=== PATIENT | male | born 1950 | race Caucasian/White ===

== ENCOUNTER 2019-11-27 12:03 | Inpatient (IN) ==
[2019-11-27] MEDS ORDERED: 0.9 % Sodium Chloride 1,000 ML IVC SCH ×2 (14:15→14:45)
[2019-11-27] MEDS ORDERED: Naloxone 0.4 MG/ML INJ IVP PRN ×2 (14:36→19:07)
[2019-11-27] MEDS ORDERED: Ondansetron 4 MG/2 ML VIAL IVP PRN ×2 (14:36→19:07)
[2019-11-27] MEDS ORDERED: *HR* HYDROmorphone (PF) 1 MG/ML SYRINGE IVP PRN ×2 (14:38→19:07)
[2019-11-27] MEDS ORDERED: *HR* LORazepam 2 MG/ML VIAL IVP PRN ×6 (14:42→19:07)
[2019-11-27] MEDS: Piperacillin/Tazobactam 3.375 GM in 0.9 % Sodium Chloride Mini Bag 100 ML IVPB SCH ×2 (15:05→23:16)
[2019-11-27] MEDS ORDERED: *HR* Midazolam HCl 2 MG/2 ML VIAL ONE (15:17)
[2019-11-27] MEDS ORDERED: *HR* Propofol 200 MG/20 ML VIAL IVP ONE (15:17)
[2019-11-27] MEDS ORDERED: Lidocaine -MPF 2% 2 ML VIAL ONE ×2 (15:17→15:51)
[2019-11-27] MEDS ORDERED: *HR* FentaNYL (PF) 100 MCG/2 ML VIAL ONE (15:17)
[2019-11-27] MEDS ORDERED: Ondansetron 4 MG/2 ML VIAL ONE (15:18)
[2019-11-27] MEDS ORDERED: Dexamethasone 4 MG/ML VIAL ONE (15:18)
[2019-11-27] MEDS ORDERED: *HR* Rocuronium Bromide 50 MG/5 ML VIAL ONE (15:18)
[2019-11-27] MEDS ORDERED: *HR* Succinylcholine 200 MG/10 ML VIAL IVP ONE (15:21)
[2019-11-27] MEDS ORDERED: Famotidine 20 MG/2 ML VIAL ONE (15:44)
[2019-11-27] MEDS ORDERED: *HR* PHENYLEPHRINE 1,000 MCG/10 ML SYRINGE IVP ONE (16:21)
[2019-11-27] MEDS ORDERED: *HR* HYDROMORPHONE 2 MG/ML VIAL ONE (17:23)
[2019-11-27] MEDS ORDERED: Thiamine (B-1) 100 MG, Folic Acid 1 MG, MVI, adult with vitamin K 10 ML in 0.9 % Sodi... IVPB SCH (18:00)
[2019-11-27] MEDS ORDERED: Pantoprazole 40 MG VIAL IVP SCH (18:00)
[2019-11-27] MEDS ORDERED: *HR* HYDROmorphone PF 0.5 MG/0.5 ML SYRINGE IVP PRN (18:06)
[2019-11-27] MEDS ORDERED: Ondansetron 4 MG/2 ML VIAL IVP ONE (18:06)
[2019-11-27] MEDS ORDERED: *HR* Promethazine 25 MG/ML VIAL IVP PRN (18:06)
[2019-11-27] MEDS: 0.9 % Sodium Chloride 1,000 ML IVC SCH (20:36)
[2019-11-27] MEDS: Acetaminophen IV 1,000 MG/100 ML INFUS..BTL IVPB SCH (22:47)
[2019-11-28 01:01] LABS: Basophils % 0.1 %; Hematocrit 33.4 % (37.5-50.1); Lymphocytes % 1.3 %; Segmented Neutrophils % 96.3 %
[2019-11-28 01:02] LABS: Hemoglobin 10.8 g/dL (12.9-16.9); Immature Granulocytes % 0.6 % (0-4); Lymphocytes # 0.4 K/mcL (0.6-4.6); Mean Corpuscular HGB Conc 32.3 g/dL (31.6-35.5); Mean Corpuscular Volume 89.5 fL (83.0-100.0); Mean Platelet Volume 11.3 fL (9.4-12.4); Monocytes # 0.5 K/mcL (0.0-1.3); Monocytes % 1.7 %; Neutrophils # 26.2 K/mcL (1.6-8.9); Platelet Count 271 K/mcL (140-400); Red Blood Count 3.73 M/mcL (4.19-5.50); Red Cell Distribution Width 14.1 % (11.5-14.5); White Blood Count 27.2 K/mcL (4.3-11.1)
[2019-11-28 01:26] LABS: Albumin/Globulin Ratio 1.2 (1.1-2.2); Bilirubin,Direct 1.9 mg/dL (0.0-0.2); Bilirubin,Indirect 0.2 mg/dL (0.0-1.0); Bilirubin,Total 2.1 mg/dL (0.3-1.0); Globulin 2.5 g/dL (2.4-3.5); Total Protein 5.5 g/dL (6.4-8.9)
[2019-11-28 01:30] LABS: BUN/Creatinine Ratio 11 (6-26); Blood Urea Nitrogen 9 mg/dL (8-23); Calcium 7.9 mg/dL (8.6-10.3); Carbon Dioxide 20 mEq/L (23-29); Chloride 106 mEq/L (98-107); Glucose 105 mg/dL (70-105); Osmolality,Calculated 279 (280-300); Potassium 4.6 mEq/L (3.5-5.1); Sodium 135 mEq/L (136-145); eGFR For African Americans > 60 (> 60); eGFR For Non-African Americans > 60 (> 60)
[2019-11-28 01:44] LABS: Platelet Estimate Normal (Normal)
[2019-11-28] MEDS: 0.9 % Sodium Chloride 1,000 ML IVC SCH ×2 (01:59→10:18)
[2019-11-28] MEDS: Pantoprazole 40 MG VIAL IVP SCH ×2 (05:15→18:34)
[2019-11-28] MEDS: *HR* Heparin 5,000 UNIT/ML VIAL SQ SCH ×2 (05:15→18:33)
[2019-11-28] MEDS: Acetaminophen IV 1,000 MG/100 ML INFUS..BTL IVPB SCH ×3 (05:15→19:51)
[2019-11-28] MEDS: *HR* HYDROmorphone (PF) 1 MG/ML SYRINGE IVP PRN ×3 (08:35→23:07)
[2019-11-28] MEDS: Piperacillin/Tazobactam 3.375 GM in 0.9 % Sodium Chloride Mini Bag 100 ML IVPB SCH ×3 (08:35→22:58)
[2019-11-28] MEDS: Fluconazole 400 MG/200 ML 400 MG/200 ML BAG IVPB SCH (08:36)
[2019-11-28] MEDS: Thiamine (B-1) 100 MG, Folic Acid 1 MG, MVI, adult with vitamin K 10 ML in 0.9 % Sodi... IVPB SCH (18:34)
[2019-11-29] MEDS: Piperacillin/Tazobactam 3.375 GM in 0.9 % Sodium Chloride Mini Bag 100 ML IVPB SCH ×3 (00:14→17:57)
[2019-11-29] MEDS: Acetaminophen IV 1,000 MG/100 ML INFUS..BTL IVPB SCH ×4 (00:15→17:59)
[2019-11-29] MEDS: 0.9 % Sodium Chloride 1,000 ML IVC SCH ×2 (05:14→05:16)
[2019-11-29 05:38] LABS: Alanine Aminotransferase 104 Units/L (7-52); Albumin 2.8 g/dL (3.5-5.7); Albumin/Globulin Ratio 1.1 (1.1-2.2); Alkaline Phosphatase 120 Units/L (34-104); Aspartate Amino Transferase 104 Units/L (13-39); Bilirubin,Direct 1.5 mg/dL (0.0-0.2); Bilirubin,Indirect 0.3 mg/dL (0.0-1.0); Bilirubin,Total 1.8 mg/dL (0.3-1.0); Globulin 2.6 g/dL (2.4-3.5); Total Protein 5.4 g/dL (6.4-8.9)
[2019-11-29] MEDS ORDERED: *HR* Dextrose 50 % in Water (Vial) 50 ML VIAL ONE (06:00)
[2019-11-29] MEDS ORDERED: *HR* Dextrose 50 % in Water (Vial) 50 ML VIAL IVP ONE (06:00)
[2019-11-29] MEDS ORDERED: *HR* Dextrose 50 % in Water (Vial) 50 ML VIAL IVP PRN (06:08)
[2019-11-29] MEDS: *HR* Heparin 5,000 UNIT/ML VIAL SQ SCH ×2 (06:10→17:58)
[2019-11-29] MEDS: Pantoprazole 40 MG VIAL IVP SCH ×2 (06:11→17:59)
[2019-11-29] MEDS: Fluconazole 400 MG/200 ML 400 MG/200 ML BAG IVPB SCH (08:58)
[2019-11-29] MEDS: *HR* HYDROmorphone (PF) 1 MG/ML SYRINGE IVP PRN ×3 (08:59→22:01)
[2019-11-29 09:01] LABS: Basophils # 0.1 K/mcL (0.0-0.2); Basophils % 0.5 %; Eosinophils # 0.1 K/mcL (0.0-0.6); Eosinophils % 0.7 %; Hematocrit 32.9 % (37.5-50.1); Hemoglobin 10.3 g/dL (12.9-16.9); Immature Granulocytes % 0.4 % (0-4); Lymphocytes # 1.2 K/mcL (0.6-4.6); Lymphocytes % 8.2 %; Mean Corpuscular HGB Conc 31.3 g/dL (31.6-35.5); Mean Corpuscular Hemoglobin 28.5 pg (28.0-33.3); Mean Corpuscular Volume 91.1 fL (83.0-100.0); Mean Platelet Volume 11.7 fL (9.4-12.4); Monocytes # 0.6 K/mcL (0.0-1.3); Monocytes % 3.9 %; Neutrophils # 12.5 K/mcL (1.6-8.9); Platelet Count 266 K/mcL (140-400); Red Blood Count 3.61 M/mcL (4.19-5.50); Red Cell Distribution Width 14.7 % (11.5-14.5); Segmented Neutrophils % 86.3 %; White Blood Count 14.5 K/mcL (4.3-11.1)
[2019-11-29 09:03] LABS: BUN/Creatinine Ratio 18 (6-26); Blood Urea Nitrogen 15 mg/dL (8-23); Calcium 8.2 mg/dL (8.6-10.3); Carbon Dioxide 23 mEq/L (23-29); Chloride 109 mEq/L (98-107); Glucose 59 mg/dL (70-105); Osmolality,Calculated 275 (280-300); Potassium 3.8 mEq/L (3.5-5.1); Sodium 133 mEq/L (136-145); eGFR For African Americans > 60 (> 60); eGFR For Non-African Americans > 60 (> 60)
[2019-11-29] MEDS: D5% in 0.9% NACL 1,000 ML IVC SCH (12:41)
[2019-11-29] MEDS: Thiamine (B-1) 100 MG, Folic Acid 1 MG, MVI, adult with vitamin K 10 ML in 0.9 % Sodi... IVPB SCH (18:00)
[2019-11-30] MEDS: D5% in 0.9% NACL 1,000 ML IVC SCH ×2 (00:07→10:03)
[2019-11-30] MEDS: Acetaminophen IV 1,000 MG/100 ML INFUS..BTL IVPB SCH ×3 (00:08→12:28)
[2019-11-30] MEDS: Piperacillin/Tazobactam 3.375 GM in 0.9 % Sodium Chloride Mini Bag 100 ML IVPB SCH ×4 (00:09→23:59)
[2019-11-30] MEDS: *HR* Heparin 5,000 UNIT/ML VIAL SQ SCH ×2 (06:11→17:53)
[2019-11-30] MEDS: Pantoprazole 40 MG VIAL IVP SCH ×2 (06:12→17:53)
[2019-11-30 06:57] LABS: Hematocrit 31.5 % (37.5-50.1); Hemoglobin 10.1 g/dL (12.9-16.9); Mean Corpuscular HGB Conc 32.1 g/dL (31.6-35.5); Mean Corpuscular Hemoglobin 28.5 pg (28.0-33.3); Mean Corpuscular Volume 88.7 fL (83.0-100.0); Mean Platelet Volume 10.5 fL (9.4-12.4); Platelet Count 265 K/mcL (140-400); Red Blood Count 3.55 M/mcL (4.19-5.50); Red Cell Distribution Width 14.5 % (11.5-14.5); White Blood Count 7.7 K/mcL (4.3-11.1)
[2019-11-30 07:17] LABS: BUN/Creatinine Ratio 13 (6-26); Blood Urea Nitrogen 9 mg/dL (8-23); Calcium 8.3 mg/dL (8.6-10.3); Carbon Dioxide 23 mEq/L (23-29); Chloride 107 mEq/L (98-107); Glucose 139 mg/dL (70-105); Osmolality,Calculated 283 (280-300); Potassium 3.4 mEq/L (3.5-5.1); Sodium 136 mEq/L (136-145); eGFR For African Americans > 60 (> 60); eGFR For Non-African Americans > 60 (> 60)
[2019-11-30] MEDS: Fluconazole 400 MG/200 ML 400 MG/200 ML BAG IVPB SCH (07:43)
[2019-11-30] MEDS ORDERED: *HR* Labetalol 20 MG/4 ML SYRINGE IVP ONE (10:05)
[2019-11-30] MEDS: *HR* HYDROmorphone (PF) 1 MG/ML SYRINGE IVP PRN (10:43)
[2019-11-30] MEDS: amLODIPine 5 MG TABLET PO SCH (12:23)
[2019-11-30] MEDS: lisinopriL 20 MG TABLET PO SCH (12:23)
[2019-11-30] MEDS: hydroCHLOROthiazide 25 MG TABLET PO SCH (12:23)
[2019-11-30] MEDS ORDERED: Potassium Chloride Elixir 20 MEQ/15 ML UDC PO ONE (12:32)
[2019-11-30] MEDS: Gabapentin 400 MG CAPSULE PO SCH ×2 (16:05→20:27)
[2019-12-01 03:33] LABS: Hematocrit 36.4 % (37.5-50.1); Mean Corpuscular HGB Conc 33.2 g/dL (31.6-35.5); Mean Corpuscular Hemoglobin 29.2 pg (28.0-33.3); Mean Corpuscular Volume 87.7 fL (83.0-100.0); Mean Platelet Volume 10.6 fL (9.4-12.4); Platelet Count 318 K/mcL (140-400); Red Blood Count 4.15 M/mcL (4.19-5.50); Red Cell Distribution Width 14.4 % (11.5-14.5)
[2019-12-01 03:34] LABS: Hemoglobin 12.1 g/dL (12.9-16.9)
[2019-12-01 03:50] LABS: BUN/Creatinine Ratio 8 (6-26); Blood Urea Nitrogen 5 mg/dL (8-23); Calcium 8.9 mg/dL (8.6-10.3); Carbon Dioxide 27 mEq/L (23-29); Chloride 98 mEq/L (98-107); Glucose 126 mg/dL (70-105); Osmolality,Calculated 275 (280-300); Potassium 3.4 mEq/L (3.5-5.1); Sodium 133 mEq/L (136-145); eGFR For African Americans > 60 (> 60); eGFR For Non-African Americans > 60 (> 60)
[2019-12-01] MEDS: Pantoprazole 40 MG VIAL IVP SCH ×2 (06:09→18:10)
[2019-12-01] MEDS: *HR* Heparin 5,000 UNIT/ML VIAL SQ SCH ×3 (06:09→18:10)
[2019-12-01] MEDS: hydroCHLOROthiazide 25 MG TABLET PO SCH (08:59)
[2019-12-01] MEDS: Potassium Chloride Elixir 20 MEQ/15 ML UDC PO SCH ×2 (08:59→11:58)
[2019-12-01] MEDS: lisinopriL 20 MG TABLET PO SCH (08:59)
[2019-12-01] MEDS: Piperacillin/Tazobactam 3.375 GM in 0.9 % Sodium Chloride Mini Bag 100 ML IVPB SCH ×2 (09:00→15:48)
[2019-12-01] MEDS: Gabapentin 400 MG CAPSULE PO SCH ×3 (09:00→20:36)
[2019-12-01] MEDS: amLODIPine 5 MG TABLET PO SCH (09:00)
[2019-12-01] MEDS: Fluconazole 400 MG/200 ML 400 MG/200 ML BAG IVPB SCH (09:01)
[2019-12-01] MEDS: allopurinoL 300 MG TABLET PO SCH (09:02)
[2019-12-02] MEDS: Piperacillin/Tazobactam 3.375 GM in 0.9 % Sodium Chloride Mini Bag 100 ML IVPB SCH ×2 (00:10→08:41)
[2019-12-02 01:19] LABS: Hematocrit 34.5 % (37.5-50.1); Hemoglobin 11.1 g/dL (12.9-16.9); Mean Corpuscular HGB Conc 32.2 g/dL (31.6-35.5); Mean Corpuscular Hemoglobin 28.5 pg (28.0-33.3); Mean Corpuscular Volume 88.5 fL (83.0-100.0); Mean Platelet Volume 10.9 fL (9.4-12.4); Platelet Count 266 K/mcL (140-400); Red Cell Distribution Width 14.4 % (11.5-14.5)
[2019-12-02 01:37] LABS: BUN/Creatinine Ratio 11 (6-26); Blood Urea Nitrogen 8 mg/dL (8-23); Calcium 8.7 mg/dL (8.6-10.3); Carbon Dioxide 27 mEq/L (23-29); Chloride 99 mEq/L (98-107); Glucose 133 mg/dL (70-105); Osmolality,Calculated 280 (280-300); Potassium 3.6 mEq/L (3.5-5.1); Sodium 135 mEq/L (136-145); eGFR For African Americans > 60 (> 60); eGFR For Non-African Americans > 60 (> 60)
[2019-12-02] MEDS: *HR* Heparin 5,000 UNIT/ML VIAL SQ SCH (05:23)
[2019-12-02] MEDS: Pantoprazole 40 MG VIAL IVP SCH (05:23)
[2019-12-02 07:00] VITALS: BP 158/79
[2019-12-02] MEDS: Fluconazole 400 MG/200 ML 400 MG/200 ML BAG IVPB SCH (08:42)
[2019-12-02] MEDS: allopurinoL 300 MG TABLET PO SCH (08:43)
[2019-12-02] MEDS: Gabapentin 400 MG CAPSULE PO SCH (08:44)
[2019-12-02] MEDS: lisinopriL 20 MG TABLET PO SCH (08:44)
[2019-12-02] MEDS: amLODIPine 5 MG TABLET PO SCH (08:44)
[2019-12-02] MEDS: hydroCHLOROthiazide 25 MG TABLET PO SCH (08:44)
== END 2019-12-02 14:14 | disposition home or self-care (01) | DRG 853 ==
LOC: 3ANU → SUATTDRO 16:23
PROVIDERS: ADMIT Internal Medicine; ATTEND Internal Medicine